=== PATIENT | male | born 1975 | race Two or more races ===

== ENCOUNTER 2016-05-06 21:11 | Emergency (ER) | payer MEDICAID ==
[~2016-05-06] VITALS: Ht 165.1 cm; Wt 107.0 kg
[2016-05-06] MEDS ORDERED: IV SET PRIMARY 1 EA INFUS.SET MC ONE (21:51)
[2016-05-06] MEDS ORDERED: IV NS 0.9% 2,000 ML ONE (21:51)
[2016-05-06] MEDS ORDERED: IV NS 0.9% 1,000 ML BAG IV ONE (22:00)
[2016-05-06 22:18] LABS: BASOPHILS % (AUTO) 0.3 % (0.0-2.0); DIFF TOTAL % 100 %; EOSINOPHILS # (AUTO) 0.2 /CMM (0.0-0.7); EOSINOPHILS % (AUTO) 2.1 % (0.0-6.0); HEMATOCRIT 41 % (39-51); LYMPHOCYTES # (AUTO) 2.4 /CMM (0.8-4.8); LYMPHOCYTES % (AUTO) 31.8 % (20.0-44.0); MEAN CORPUSCULAR HEMOGLOBIN 28 PG (26.0-33.0); MEAN CORPUSCULAR HGB CONC 34 g/dl (31.0-36.0); MEAN CORPUSCULAR VOLUME 83 fL (80-96); MONOCYTES # (AUTO) 0.5 /CMM (0.1-1.30); NEUTROPHILS # (AUTO) 4.5 /CMM (1.8-8.9); NEUTROPHILS % (AUTO) 58.8 % (43.0-81.0); PLATELET COUNT (AUTO) 173 /CMM (150-450); WHITE BLOOD COUNT (AUTO) 7.7 K/uL (4.3-11.0)
[2016-05-06 22:27] LABS: KETONES,URINE TRACE (NEGATIVE); LEUKOCYTE ESTERASE ,URINE NEGATIVE (NEGATIVE); PH,URINE 5.5 (5.0-8.0)
[2016-05-06 22:32] LABS: ADD UA MICROSCOPIC YES
[2016-05-06 22:39] LABS: ALBUMIN 3.5 g/dL (3.4-5.0); BILIRUBIN,DIRECT 0.1 mg/dL (0.0-0.2); BILIRUBIN,TOTAL 0.3 mg/dL (0.2-1.0); CALCIUM, SERUM 8.8 mg/dL (8.5-10.1); CREATININE 0.9 mg/dL (0.6-1.3); INDIRECT BILIRUBIN 0.2 mg/dL (0.0-1.1); POTASSIUM 3.7 mmol/L (3.5-5.1); TOTAL PROTEIN, SERUM 7.1 g/dL (6.4-8.2)
[2016-05-06 22:40] LABS: ADD URINE CULTURE NO; RBC,URINE 0-2 /HPF (0-2); WBC,URINE 0-2 /HPF (0-3)
[2016-05-06 23:55] VITALS: BP 123/67
== END 2016-05-06 23:57 | disposition home or self-care (01) ==
LOC: ER 21:15
DX: E11.65 Type 2 diabetes mellitus with hyperglycemia (principal); R61 Generalized hyperhidrosis
CPT/HCPCS: 36415; 71010; 80048; 80076; 81001; 82962 ×2; 85025; 93005; 96360; 96361; 99285; A4606; J7030; Z7610; 81000-TC

== ENCOUNTER 2017-06-01 00:25 | Emergency (ER) | payer MEDICAID ==
[~2017-06-01] VITALS: Ht 172.7 cm; Wt 99.8 kg
[2017-06-01 00:40] VITALS: BP 132/77
[2017-06-01] MEDS ORDERED: CEFTRIAXONE 1 G VIAL ONE (01:41)
[2017-06-01] MEDS ORDERED: SULFAMETH/TRIMETH 800/160 MG 1 UDTAB TABLET PO ONE (01:41)
[2017-06-01] MEDS ORDERED: LIDOCAINE /MPF 1% VIAL 5 ML VIAL ONE (01:42)
[2017-06-01] MEDS: CEFTRIAXONE 1 G VIAL IM ONE (01:48)
[2017-06-01] MEDS: SULFAMETH/TRIMETH 800/160 MG 1 UDTAB TABLET PO ONE (01:48)
== END 2017-06-01 03:25 | disposition home or self-care (01) ==
LOC: ER 00:26
DX: L03.116 Cellulitis of left lower limb (principal); E11.9 Type 2 diabetes mellitus without complications; Z98.890 Other specified postprocedural states
CPT/HCPCS: 82962-TC; 93971-TC; A4606; J0696; J3490; Z7610

== ENCOUNTER 2017-06-01 15:16 | Emergency (ER) | payer MEDICAID ==
[~2017-06-01] VITALS: Ht 172.7 cm; Wt 99.8 kg
[2017-06-01 15:56] VITALS: BP 118/84
[2017-06-01] MEDS ORDERED: HYDROCODONE/APAP 5/325MG 1 EACH TABLET ONE (16:35)
[2017-06-01] MEDS: HYDROCODONE/APAP 5/325MG 1 EACH TABLET PO ONE (16:40)
== END 2017-06-01 16:53 | disposition home or self-care (01) ==
LOC: ER 15:18
DX: L03.116 Cellulitis of left lower limb (principal); E11.9 Type 2 diabetes mellitus without complications; Z76.0 Encounter for issue of repeat prescription; Z98.890 Other specified postprocedural states
CPT/HCPCS: A4606; Z7610

== ENCOUNTER 2023-08-09 12:09 | Emergency (ER) | payer MEDICAID, OTHER ==
[~2023-08-09] VITALS: Ht 172.7 cm; Wt 95.3 kg
[2023-08-09 12:10] VITALS: BP 147/88; TEMP 98.4
[2023-08-09] MEDS ORDERED: KETOROLAC TROMETHAMINE 15 MG/ML VIAL ONE (12:21)
[2023-08-09] MEDS: KETOROLAC TROMETHAMINE 15 MG/ML VIAL IM ONE (12:24)
[2023-08-09 12:36] VITALS: O2SAT 97
== END 2023-08-09 12:47 | disposition home or self-care (01) ==
LOC: ER 12:09
DX: S90.821A Blister (nonthermal), right foot, initial encounter (principal); M25.571 Pain in right ankle and joints of right foot; E11.9 Type 2 diabetes mellitus without complications; X58.XXXA Exposure to other specified factors, initial encounter; Y93.89 Activity, other specified; Y92.89 Other specified places as the place of occurrence of the external cause; Y99.8 Other external cause status
CPT/HCPCS: 99284; 96372; J1885

== ENCOUNTER 2023-12-13 10:49 | Emergency (ER) | payer OTHER ==
[~2023-12-13] VITALS: Ht 172.7 cm; Wt 97.5 kg
[2023-12-13 10:52] VITALS: BP 125/69; TEMP 98.3
[2023-12-13] MEDS ORDERED: SULF1TAB48 PO (10:57)
[2023-12-13] MEDS ORDERED: CEPH-570 PO (10:57)
[2023-12-13 11:03] VITALS: O2SAT 98
== END 2023-12-13 11:04 | disposition home or self-care (01) ==
LOC: ER 10:53
DX: A49.02 Methicillin resistant Staphylococcus aureus infection, unspecified site (principal); L98.8 Other specified disorders of the skin and subcutaneous tissue; E11.9 Type 2 diabetes mellitus without complications